=== PATIENT | male | born 1940 | race Caucasian/White ===

== ENCOUNTER 2018-01-20 13:30 | Outpatient (RCR) | payer OTHER, MEDICARE ==
[~2018-01-20 13:30] MED LIST: ASPIRIN 81M81 MG/TA2 PO; BLOOD PRESSURE MED; CHOLESTROL MED; CIPRO 500MG TA500 MG PO; DESYREL DIVIDO300 MG PO; FLAGYL500 MG PO; LIPITOR 10MG10 MG; NORCO 325 MG-51 TAB PO; ZOFRAN 4MG T4 MG/TAB PO
== END 2018-03-14 | disposition home or self-care (01) ==
LOC: WSPT
DX: M25.552 Pain in left hip (principal)

== ENCOUNTER 2019-11-12 08:47 | Emergency (ER) | payer MEDICARE, OTHER ==
[~2019-11-12] VITALS: Ht 172.7 cm; Wt 90.9 kg
[2019-11-12 09:03] VITALS: BP 131/85; PULSE 86; TEMP 98.3
== END 2019-11-12 10:01 | disposition home or self-care (01) ==
LOC: COL.ER 08:47
DX: M25.572 Pain in left ankle and joints of left foot (principal); Z79.82 Long term (current) use of aspirin

== ENCOUNTER 2020-04-09 12:08 | Observation (INO) | payer MEDICARE, OTHER ==
[~2020-04-09] VITALS: Ht 172.7 cm; Wt 98.7 kg
[2020-04-09 14:55] LABS: COLLECTION METHOD CLEAN CATCH
[2020-04-09 15:00] LABS: BASO # 0.1 (0.0-0.2); BASO % 0.6 % (0.0-2.0); EOS # 0.2 (0.0-0.7); EOS % 1.3 % (0-4.0); GRAN # 11.4 (1.4-6.5); GRAN % 74.1 % (42.2-75.2); HEMATOCRIT 48.2 % (42.0-52.0); HEMOGLOBIN 15.7 g/dl (13.5-18.0); LYMPH # 2.3 (1.2-3.4); MEAN CELL VOLUME 93 fl (80.0-100.0); MEAN CORPUSCULAR HEMOGLOBIN 30 pg (27.0-31.0); MEAN CORPUSCULAR HGB CONC 33 g/dl (33.0-37.0); MEAN PLATELET VOLUME 11.5 fl (7.4-10.4); MONO # 1.3 (0.1-0.6); MONO % 8.5 % (1.7-9.3); PLATELET COUNT 233 K/mm3 (130-400); REDCELL DISTRIBUTION WIDTH-CV 13.3 % (11.5-14.5)
[2020-04-09 15:04] LABS: MUCOUS Present /lpf; PH 6 (5-8); SQUAMOUS EPITHELIAL None Seen /hpf; URINE APPEARANCE Clear; URINE BACTERIA None Seen /hpf; URINE BILIRUBIN Negative (NEGATIVE); URINE BLOOD Negative (NEGATIVE); URINE COLOR Yellow; URINE GLUCOSE Negative (NEGATIVE); URINE KETONE Negative (NEGATIVE); URINE LEUKOCYTE ESTERASE Negative (NEGATIVE); URINE NITRATE Negative (NEGATIVE); URINE PROTEIN(semi-quant) Negative (NEGATIVE); URINE UROBILINOGEN Negative (NEGATIVE)
[2020-04-09 15:13] LABS: ALANINE AMINOTRANSFERASE 22 U/L (4-49); ALBUMIN 4.4 gm/dL (3.5-5.0); ALKALINE PHOSPHATASE 68 U/L (50-136); ANION GAP 9 mmol/L (7-16); AST,SGOT 26 U/L (15-37); BILIRUBIN,TOTAL 0.9 mg/dL (0.0-1.0); BLOOD UREA NITROGEN 24 mg/dL (9-20); C-REACTIVE PROTEIN 2.9 mg/dL (0.0-0.9); CARBON DIOXIDE 31 mmol/L (22-30); CHLORIDE 98 mmol/L (98-107); CREATININE, serum 1.33 (0.66-1.25); GLUCOSE 93 mg/dL (74-106); LIPASE 89 U/L (23-300); POTASSIUM 4.2 mmol/L (3.4-5.0); SODIUM 138 mmol/L (137-145); TOTAL PROTEIN 8.3 gm/dL (6.4-8.2)
[2020-04-09 15:28] LABS: TROPONIN-I < 0.012 ng/mL (0.000-0.035)
[2020-04-09 20:00] VITALS: BP 143/71; PULSE 76; TEMP 97.5
--- NOTE | 2020-04-09 20:35 | NUR ---
Pt arrived per w/c from ED. Is alert and oriented x4. Has SL to left AC. Reports left lower abdominal pain 3/10 at this time. Clear liquid tray provided.
[2020-04-09 20:51] VITALS: BP 143/71; PULSE 76; TEMP 97.5
[2020-04-09] MEDS ORDERED: DESYREL 100MG100 MG PO (22:16)
[2020-04-09] MEDS ORDERED: THERA-D 20002000 IU PO (22:18)
[2020-04-09] MEDS ORDERED: ZOCOR 20MG20 MG PO (22:19)
[2020-04-09] MEDS ORDERED: SINGULAIR 110 MG/TAB PO (22:19)
[2020-04-09] MEDS ORDERED: COZAAR 25MG25 MG/TAB PO (22:21)
[2020-04-09] MEDS ORDERED: ASPIRIN E.C. 8181 MG PO (22:21)
[2020-04-09] MEDS ORDERED: EPA FISH OIL1000 MG PO (22:22)
[2020-04-09] MEDS ORDERED: PROZAC 20MG20 MG PO (22:23)
[2020-04-09] MEDS ORDERED: VITAMINC1000TA PO (22:24)
[2020-04-09] MEDS ORDERED: CALTRATE-600 W600 MG PO (22:25)
[2020-04-09] MEDS ORDERED: PROAIR HFA0.09 MG/AC IH (22:25)
--- NOTE | 2020-04-09 22:48 | NUR ---
Pt reports pain 6/10 to left lower abdomen. Took shower on own. Medicated with scheduled HS meds and dose of Morphine 2mg IVP at this time.
[2020-04-10] VITALS: BP 110/51; PULSE 76; TEMP 97.6
--- NOTE | 2020-04-10 00:10 | NUR ---
Pt resting without concern.
[2020-04-10 04:00] VITALS: BP 105/59; PULSE 76; TEMP 97.6
--- NOTE | 2020-04-10 05:22 | NUR ---
Reports pain to left lower abd 10/10, medicated with Morphine 2mg IVP at this time.
[2020-04-10 07:46] LABS: HEMATOCRIT 46.4 % (42.0-52.0); HEMOGLOBIN 14.7 g/dl (13.5-18.0); MEAN CELL VOLUME 94 fl (80.0-100.0); MEAN CORPUSCULAR HEMOGLOBIN 30 pg (27.0-31.0); MEAN CORPUSCULAR HGB CONC 32 g/dl (33.0-37.0); MEAN PLATELET VOLUME 11.6 fl (7.4-10.4); PLATELET COUNT 224 K/mm3 (130-400); RED BLOOD COUNT 4.95 M/mm3 (4.20-5.60); REDCELL DISTRIBUTION WIDTH-CV 13.4 % (11.5-14.5)
[2020-04-10 08:00] LABS: C-REACTIVE PROTEIN 5.1 mg/dL (0.0-0.9); CREATININE, serum 1.18 (0.66-1.25); POTASSIUM 4.6 mmol/L (3.4-5.0)
--- NOTE | 2020-04-10 08:00 | NUR ---
Patient resting in bed at this time. Patient is alert and oriented, answers questions appropriately. Patient denies pain or needs. Patient up independently to bathroom where he is continent of urine. Call light within reach.
[2020-04-10 08:34] VITALS: BP 111/53; PULSE 71; TEMP 97.8
[2020-04-10 12:25] VITALS: BP 143/58; PULSE 79; TEMP 96.1
--- NOTE | 2020-04-10 14:34 | NUR ---
Discharge teaching completed. Discussed discharge medications, discharge appointment, and discharge instructions, including diet recommendations. Patient verbalized understanding. Home medications retrieved from pharmacy and given to patient. Patient confirmed that he gathered all personal belongings. INT removed from LAC, catheter intact, hemostasis achieved. Patient escorted to ED entrance where he entered a private vehicle.
== END 2020-04-10 14:30 | disposition home or self-care (01) ==
LOC: COL.ER 12:08 → SURG 16:49
PROVIDERS: Emergency Medicine; ADMIT Surgery
DX: K57.32 Diverticulitis of large intestine without perforation or abscess without bleeding (principal); E78.5 Hyperlipidemia, unspecified; I10 Essential (primary) hypertension; J44.9 Chronic obstructive pulmonary disease, unspecified; Z87.891 Personal history of nicotine dependence; F43.10 Post-traumatic stress disorder, unspecified; Z79.82 Long term (current) use of aspirin
CPT/HCPCS: J0696; J2270; J2405; J3010; J7030; Q9967